=== PATIENT | female | born 1935 | race Caucasian/White ===

== ENCOUNTER 2017-04-30 07:03 | Emergency (ER) | payer MEDICARE, OTHER ==
[2017-04-30 07:27] LABS: #Basophils 0.1 thou/uL (0.0-0.2); #Eosinphils 0.1 thou/uL (0.0-0.7); #Lymphocytes 2.1 thou/uL (1.20-3.40); #Monocytes 0.6 thou/uL (0.11-0.59); #Neutrophils 1.9 thou/uL (1.40-6.50); %Basophils 1.2 % (0.0-1.0); %Eosinophils 1.3 % (0.0-10.0); %Lymphocytes 43.6 % (21.0-51.0); %Monocytes 12.7 % (0.0-10.0); Hematocrit 42.7 % (36.0-47.0); Mean Platelet Volume 7.2 fL (7.4-10.4); Red Blood Cell (RBC) Count 4.49 mill/uL (4.20-5.40); White Blood Cell (WBC) Count 4.7 thou/uL (4.8-10.8)
[2017-04-30 07:43] LABS: Lactic Acid - Sepsis 1.6 mmol/L (0.5-2.2)
[2017-04-30 07:58] LABS: Troponin I 0.012 ng/mL (< 0.028)
--- NOTE | 2017-04-30 08:02 | RAD ---
FRONTAL VIEW CHEST: INDICATION: Weakness. COMPARISON: No prior comparison. FINDINGS: Lungs are hyperinflated. There is pleural fluid at the inferior left hemithorax. Interstitial prom inence of each lung is present. There is mild prominence of the cardiac silhouette and pulmonary va sculature with vascular calcification. Osseous degenerative change is present. IMPRESSION: Findings most consistent with edema and small volume left pleural fluid which may relate to congesti ve heart failure. Recommend clinical correlation and followup imaging. POS: LETI
[2017-04-30] MEDS ORDERED: Nitroglycerin 2% Ointment 1 INCH/1 GM Packet ONE (08:52)
[2017-04-30] MEDS ORDERED: cloNIDine HCl 0.1 MG TAB ONE (08:52)
[2017-04-30 09:45] LABS: ALT (SGPT) 15 U/L (8-55); AST (SGOT) 36 U/L (5-34); Alkaline Phosphatase 91 U/L (40-150); Anion Gap 13 mmol/L (10-20); BUN (Urea Nitrogen) 12 mg/dL (9.8-20.1); Bilirubin, Total 0.4 mg/dL (0.2-1.2); CK (CPK) 67 U/L (29-168); Calc. Creatinine Clearance 0 mL/min (70-130); Calcium 9.5 mg/dL (7.8-10.44); Carbon Dioxide 26 mmol/L (23-31); Chloride 102 mmol/L (98-107); Estimated GFR-MDRD 69; Globulin 4.1 g/dL (2.4-3.5); Lipase 23 U/L (8-78)
[2017-04-30 10:14] LABS: Bilirubin Negative (Negative); Blood, Urine Negative (Negative); Glucose, Urine (Dipstick) Negative (Negative); Ketone, Urine Negative (Negative); Nitrite Negative (Negative); Protein, Urine (Dipstick) Negative (Neg-Trace); Urobilinogen 0.2 mg/dL (0.2-1.0)
== END 2017-04-30 10:40 | disposition home or self-care (01) ==
LOC: ERS 07:03
DX: R53.1 Weakness (principal); R42 Dizziness and giddiness; I48.91 Unspecified atrial fibrillation; Z79.899 Other long term (current) drug therapy
CPT/HCPCS: 71010; 80053; 81003; 82553; 83605; 83690; 83880; 84484; 85025; 93005; 94760